=== PATIENT | female | born 1985 | race Caucasian/White ===

== ENCOUNTER 2017-08-24 19:31 | Outpatient (CLI) | payer MEDICAID ==
[2017-08-24 19:45] VITALS: BP 123/65
== END 2017-08-24 20:28 | disposition home or self-care (01) ==
LOC: WFO 19:31 → FBP 19:34 → WFO 20:28
PROVIDERS: ATTEND Obstetrics & Gynecology
DX: Z34.93 Encounter for supervision of normal pregnancy, unspecified, third trimester (principal)
CPT/HCPCS: 99212

== ENCOUNTER 2017-12-26 16:13 | Emergency (ER) | payer MEDICAID ==
[2017-12-26 16:21] VITALS: BP 119/89
[2017-12-26 16:33] LABS: BILIRUBIN,URINE NEGATIVE (NEGATIVE); GLUCOSE, URINE (UA) NEGATIVE (NEGATIVE); KETONES,URINE (UA) NEGATIVE (NEGATIVE); LEUKOCYTE ESTERASE, URINE MODERATE (NEGATIVE); NITRITE,URINE POSITIVE (NEGATIVE); OCCULT BLOOD,URINE TRACE-INTA (NEGATIVE); PROTEIN,URINE TRACE mg/dL (NEGATIVE); UROBILINOGEN,URINE 0.2 (NORMAL) E.U./dL (NORMAL)
[2017-12-26 16:36] LABS: CLARITY,URINE CLOUDY (CLEAR)
[2017-12-26 16:37] LABS: HCG UR QUAL NEGATIVE
--- NOTE | 2017-12-26 16:46 | ED Physician Documentation ---
PD HPI FEMALE - Stated complaint Stated Complaint: FEMALE - Chief complaint Chief Complaint: UTI - History obtained from History obtained from: Patient - History of Present Illness Timing - onset: How many weeks ago (1) Timing - duration: Weeks (1) Timing - details: Gradual onset, Still present Associated symptoms: Dysuria, Urinary frequency Similar symptoms before: Diagnosis (UTI) Recently seen: Not recently seen - Additional information Additional information: 32-year-old female previously well has had urinary urgency frequency and dysuria for the past week. She has been drinking some extra fluids and cranberry juice symptoms have not resolved. She denies any flank pain or nausea or vomiting she does have some lower back pain. Review of Systems Constitutional: denies: Fever Respiratory: denies: Cough GI: denies: Vomiting : reports: Dysuria, Frequency Skin: denies: Rash Musculoskeletal: reports: Back pain. denies: Neck pain, Extremity pain Neurologic: denies: Generalized weakness, Focal weakness, Numbness PD PAST MEDICAL HISTORY - Past Medical History Past Medical History: No - Past Surgical History Past Surgical History: No - Present Medications Home Medications: Ambulatory Orders Medication Instructions Recorded Confirmed Sulfamethoxazole/Trimethoprim 1 each PO BID #10 tablet 12/26/17 [Sulfamethoxazole-Tmp Ds Tablet] - Allergies Allergies/Adverse Reactions: Allergies Allergy/AdvReac Type Severity Reaction Status Date / Time No Known Drug Allergies Allergy Verified 12/26/17 16:21 - Social History Does the pt smoke?: Yes Smoking Status: Current every day smoker Does the pt drink ETOH?: No Does the pt have substance abuse?: No Substance Use and Type: Marijuana - Immunizations Immunizations are current?: Yes PD ED PE NORMAL - Vitals Vital signs reviewed: Yes (hypertensive ) - General General: Alert and oriented X 3, No acute distress, Well developed/nourished - HEENT HEENT: Atraumatic, PERRL, EOMI - Neck Neck: Supple, no meningeal sign - Respiratory Respiratory: No respiratory distress - Back Back: No CVA TTP, No spinal TTP - Derm Derm: Normal color, Warm and dry, No rash - Extremities Extremities: No deformity, No edema - Neuro Neuro: No motor deficit, No sensory deficit Eye Opening: Spontaneous Motor: Obeys Commands Verbal: Oriented GCS Score: 15 - Psych Psych: Normal mood, Normal affect Results - Vitals Vitals: Vital Signs - 24 hr 12/26/17 16:18 Temperature 37.0 C Heart Rate 96 Respiratory 16 Rate Blood Pressure 119/89 H O2 Saturation 97 Oxygen O2 Source Room air - Labs Labs: Laboratory Tests 12/26/17 12/26/17 16:27 16:27 Urine Color YELLOW Urine Clarity CLOUDY Urine pH 6.[address] 1.015 1.015 Urine Protein TRACE Urine Glucose (UA) NEGATIVE Urine Ketones NEGATIVE Urine Occult Blood TRACE-INTA Urine Nitrite POSITIVE H Urine Bilirubin NEGATIVE Urine Urobilinogen 0.2 (NORMAL) Ur Leukocyte Esterase MODERATE H Urine RBC 0-5 Urine WBC >25 H Urine WBC Clumps PRESENT Ur Squamous Epith Cells MOD Squamous H Urine Bacteria Many H Ur Microscopic Review INDICATED Urine Culture Comments NOT INDICATED Urine HCG, Qual NEGATIVE PD MEDICAL DECISION MAKING - ED course Complexity details: reviewed results, re-evaluated patient, considered differential, d/w patient ED course: 32-year-old female with acute urinary tract infection will be treated with Septra. - Sepsis Event Vital Signs: Vital Signs - 24 hr 12/26/17 16:18 Temperature 37.0 C Heart Rate 96 Respiratory 16 Rate Blood Pressure 119/89 H O2 Saturation 97 Oxygen O2 Source Room air Departure - Departure Disposition: 01 Home, Self Care Clinical Impression: Urinary tract infection Qualifiers: Urinary tract infection type: acute cystitis Hematuria presence: without hematuria Qualified Code(s): N30.00 - Acute cystitis without hematuria Condition: Stable Instructions: ED UTI Cystitis Female Follow-Up: [facility] [Provider Group] Prescriptions: Sulfamethoxazole/Trimethoprim [Sulfamethoxazole-Tmp Ds Tablet] 1 each PO BID # 10 tablet Discharge Date/Time: 12/26/17 16:51
[2017-12-26 16:52] LABS: BACTERIA,URINE Many /HPF (None Seen); RBC,URINE 0-5 /HPF (0-5); SQUAMOUS EPITHELIAL CELL,UR MOD Squamous (<= Few); WBC CLUMPS,URINE PRESENT
== END 2017-12-26 16:51 | disposition home or self-care (01) ==
LOC: ED 16:13
DX: N30.00 Acute cystitis without hematuria (principal); F17.200 Nicotine dependence, unspecified, uncomplicated
CPT/HCPCS: 81001; 81003; 81025; 87086; 99283

== ENCOUNTER 2018-01-02 16:20 | Outpatient (CLI) | payer MEDICAID ==
[2018-01-05 02:47] LABS: HSV 2 DNA NOT DETECTED; SOURCE VAGINAL
== END 2018-01-02 16:21 | disposition home or self-care (01) ==
LOC: LAB.R 16:20
PROVIDERS: ATTEND Obstetrics & Gynecology
DX: N76.0 Acute vaginitis (principal); N90.89 Other specified noninflammatory disorders of vulva and perineum
CPT/HCPCS: 87480; 87510; 87529; 87660

== ENCOUNTER 2018-03-07 14:06 | Outpatient (CLI) | payer MEDICAID ==
[2018-03-07 19:37] LABS: BASOPHILS % (AUTO) 0.7 %; EOSINOPHILS # (AUTO) 0.2 10^3/uL (0.0-0.7); EOSINOPHILS % (AUTO) 3.2 %; HGB - HEMOGLOBIN 12.1 g/dL (12.0-16.0); LYMPHOCYTES # (AUTO) 2.6 10^3/uL (1.5-3.5); LYMPHOCYTES % (AUTO) 42.6 %; MEAN CORPUSCULAR HEMOGLOBIN 30.2 pg (27.0-31.0); MEAN CORPUSCULAR HGB CONC 34.3 g/dL (32.0-36.0); MEAN CORPUSCULAR VOLUME 87.9 fL (81.0-99.0); MEAN PLATELET VOLUME 7.7 fL (7.9-10.8); MONOCYTES # (AUTO) 0.3 10^3/uL (0.0-1.0); MONOCYTES % (AUTO) 5.6 %; NEUTROPHILS # (AUTO) 2.9 10^3/uL (1.5-6.6); NEUTROPHILS % (AUTO) 47.9 %; PLT - PLATELET COUNT 311 10^3/uL (130-450); RED BLOOD COUNT 4.02 10^6/uL (4.20-5.40); RED CELL DISTRIBUTION WIDTH 13.6 % (12.0-15.0); WHITE BLOOD COUNT 6.1 x10^3/uL (4.8-10.8)
[2018-03-07 19:50] LABS: ALBUMIN/GLOBULIN RATIO 1.5 (1.0-2.2); BILIRUBIN,TOTAL 0.5 mg/dL (0.2-1.0); CALCIUM 8.6 mg/dL (8.5-10.3); CREATININE 0.8 mg/dL (0.4-1.0); TOTAL PROTEIN 6.7 g/dL (6.7-8.2)
[2018-03-07 19:59] LABS: THYROID STIMULATING HORMONE 0.2 uIU/mL (0.34-5.60)
[2018-03-07 20:10] LABS: FOLATE 9.87 ng/mL (5.90 - >24.8)
== END 2018-03-07 14:07 | disposition home or self-care (01) ==
LOC: LAB.N 14:06
PROVIDERS: ATTEND Nurse Practitioner
DX: R53.83 Other fatigue (principal); E55.9 Vitamin D deficiency, unspecified
CPT/HCPCS: 36415; 80050; 82306; 82607; 82746

== ENCOUNTER 2020-09-08 13:15 | Outpatient (CLI) | payer MEDICAID | END 2020-09-08 13:16 | disposition critical access hospital (66) | LOC: EMS 13:15 | PROVIDERS: ATTEND Emergency Medicine | DX: T65.892A Toxic effect of other specified substances, intentional self-harm, initial encounter (principal); T50.902A Poisoning by unspecified drugs, medicaments and biological substances, intentional self-harm, initial encounter | CPT/HCPCS: A0425; A0429 ==

== ENCOUNTER 2020-09-08 13:32 | Emergency (ER) | payer MEDICAID ==
[2020-09-08] MEDS ORDERED: LORazepam 2 MG/ML VIAL IVP STA (13:40)
[2020-09-08] MEDS ORDERED: SODIUM CHLORIDE 0.9% 1,000 ML IV STA (13:52)
[2020-09-08 14:09] LABS: BASOPHILS % (AUTO) 0.6 %; EOSINOPHILS # (AUTO) 0.5 10^3/uL (0.0-0.7); EOSINOPHILS % (AUTO) 6.8 %; HCT - HEMATOCRIT 38.6 % (37.0-47.0); HGB - HEMOGLOBIN 11.9 g/dL (12.0-16.0); LYMPHOCYTES # (AUTO) 1.8 10^3/uL (1.5-3.5); LYMPHOCYTES % (AUTO) 25.9 %; MEAN CORPUSCULAR HEMOGLOBIN 26.4 pg (27.0-31.0); MEAN CORPUSCULAR HGB CONC 30.8 g/dL (32.0-36.0); MEAN CORPUSCULAR VOLUME 85.8 fL (81.0-99.0); MEAN PLATELET VOLUME 9.2 fL (7.9-10.8); MONOCYTES # (AUTO) 0.6 10^3/uL (0.0-1.0); MONOCYTES % (AUTO) 8.8 %; NEUTROPHILS # (AUTO) 3.9 10^3/uL (1.5-6.6); NEUTROPHILS % (AUTO) 57.8 %; PLT - PLATELET COUNT 345 10^3/uL (130-450); RED CELL DISTRIBUTION WIDTH 15.8 % (12.0-15.0); WHITE BLOOD COUNT 6.8 x10^3/uL (4.8-10.8)
--- NOTE | 2020-09-08 14:17 | XRAY Report ---
PROCEDURE: Chest 1 View X-Ray INDICATIONS: caustic ingestion TECHNIQUE: One view of the chest was acquired. COMPARISON: None FINDINGS: Surgical changes and devices: None. Lungs and pleura: No pleural effusions or pneumothorax. Lungs are clear. Mediastinum: Mediastinal contours appear normal. Heart size is normal. Bones and chest wall: No suspicious bony lesions. Overlying soft tissues appear unremarkable. IMPRESSION: No acute process. Reviewed by: Fer Canseco MD on 09/08/2020 2:[address] [facility] Approved by: Fer Canseco MD on 09/08/2020 2:[address] [facility] Station ID: [id number]
[2020-09-08 14:28] LABS: ALBUMIN 4.6 g/dL (3.2-5.5); ALBUMIN/GLOBULIN RATIO 1.4 (1.0-2.2); ALKALINE PHOSPHATASE 59 IU/L (42-121); ALT ALANINE AMINOTRANSFERASE 31 IU/L (10-60); AST ASPARTATE AMINOTRANSFERASE 37 IU/L (10-42); BILIRUBIN,TOTAL 1.6 mg/dL (0.2-1.0); BUN - BLOOD UREA NITROGEN 22 mg/dL (6-20); CALCIUM 9.3 mg/dL (8.5-10.3); CARBON DIOXIDE - CO2 20 mmol/L (21-32); CHLORIDE 105 mmol/L (101-111); ETOH - ETHANOL < 5.0 mg/dL; GFR - MDRD 63 (>89); GLUCOSE 139 mg/dL (70-100); LIPASE 18 U/L (22-51); POTASSIUM 3.2 mmol/L (3.5-5.0); SODIUM 138 mmol/L (135-145); TOTAL PROTEIN 7.9 g/dL (6.7-8.2)
--- NOTE | 2020-09-08 14:28 | ED Physician Documentation ---
History of Present Illness - Stated complaint Stated Complaint: SI/OD - Chief complaint Chief Complaint: MHE - History obtained from History obtained from: Patient, EMS - Additonal information Additional information: Patient is brought to the emergency department by EMS for chief complaint of suicidal attempt. The patient according to EMS approximately 1 hour ago took 18 ibuprofen and a handful of Prozac. Medics report that patient's friends told them that the patient "washed it all down with bleach". Medics estimate the patient drank 1/2 to 1/4 cup of bleach. The patient has been stable in route. No complaints of chest pain. No vomiting. No difficulty breathing. Patient is quite agitated and is screaming "I do not want to be here! I just want to !" Patient is extremely uncooperative with history taking and very little history is available from her. She does admit to taking meth, though she states it was not today. She states she just took "what ever was in the bathroom". Medics report that patient is not at her own house, as she is from [place], but has been staying with friends. Patient denies any alcohol ingestion or ingestion of any other illicit drugs. She states, when asked how much bleach she drank, she took "enough". The patient states she "hurts all over". She states that she has been feeling extremely suicidal for the last 24 hours and refuses to e laborate, stating only "I got played the fool". Patient repeatedly screams and yells at staff, and attempts to rip her IV out, and ultimately, attempts to hit and kick staff. No other information available via patient at this time. Review of Systems Unable to obtain: Uncooperative PD PAST MEDICAL HISTORY - Past Surgical History Past Surgical History: No - Present Medications Home Medications: Ambulatory Orders Medication Instructions Recorded Confirmed Sulfamethoxazole/Trimethoprim 1 each PO BID #10 tablet 12/26/17 [Sulfamethoxazole-Tmp Ds Tablet] - Allergies Allergies/Adverse Reactions: Allergies Allergy/AdvReac Type Severity Reaction Status Date / Time No Known Drug Allergies Allergy Verified 12/26/17 16:21 - Social History Does the pt smoke?: Yes Smoking Status: Current every day smoker Does the pt drink ETOH?: No Does the pt have substance abuse?: No - Immunizations Immunizations are current?: Yes PD ED PE NORMAL - Vitals Vital signs reviewed: Yes - General General: Other (Patient is agitated, screaming and yelling, swinging arms and legs, and intermittently loudly sobbing, yelling at staff to "leave me alone and let me !") - HEENT HEENT: Atraumatic, PERRL, EOMI, Moist mucous membranes (Patient does not cooperate with examination of mucosa, but when patient's mouth is open, no obvious ulcerations or pseudomembranes can be seen. Patient is not excessively salivating. No blood around her mouth.) - Neck Neck: Supple, no meningeal sign - Cardiac Cardiac: RRR, No murmur - Respiratory Respiratory: No respiratory distress, Clear bilaterally - Abdomen Abdomen: Soft, Non tender, Non distended - Back Back: No CVA TTP - Derm Derm: Normal color, Warm and dry, No rash - Extremities Extremities: No deformity, No edema, No calf tenderness / cord - Neuro Neuro: Other (Alert, combative, severely emotionally distraught. Moving all 4 extremities. Speech is clear.) - Psych Psych: Other (Agitated, belligerent, tearful, angry.) Results - Vitals Vitals: Vital Signs - 24 hr 09/08/20 09/08/20 09/08/20 13:32 14:06 14:17 Temperature 37.0 C Heart Rate 122 H 105 H 96 Respiratory 22 21 17 Rate Blood Pressure 109/77 103/73 106/73 O2 Saturation 98 98 100 09/08/20 09/08/20 09/08/20 14:37 15:19 15:43 Temperature Heart Rate 95 94 90 Respiratory 14 16 24 Rate Blood Pressure 105/73 108/72 111/73 O2 Saturation 96 98 98 09/08/20 09/08/20 09/08/20 16:00 16:30 17:00 Temperature Heart Rate 94 90 100 Respiratory 16 16 15 Rate Blood Pressure 114/77 136/60 H O2 Saturation 98 98 94 09/08/20 09/08/20 17:30 18:00 Temperature Heart Rate 100 100 Respiratory 16 Rate Blood Pressure 136/55 H 136/71 H O2 Saturation 97 Oxygen O2 Source Room air - Labs Labs: Laboratory Tests 09/08/20 09/08/20 09/08/20 14:04 14:04 14:04 WBC 6.8 RBC 4.50 Hgb 11.9 L Hct 38.6 MCV 85.8 MCH 26.4 L MCHC 30.8 L RDW 15.8 H Plt Count 345 MPV 9.2 Neut # (Auto) 3.9 Lymph # (Auto) 1.8 Tate # (Auto) 0.6 Eos # (Auto) 0.5 Baso # (Auto) 0.0 Absolute Nucleated RBC 0.00 Nucleated RBC % 0.0 Sodium 138 Potassium 3.2 L Chloride 105 Carbon Dioxide 20 L Anion Gap 13.0 BUN 22 H Creatinine 1.0 Estimated GFR (MDRD) 63 L Glucose 139 H Calcium 9.3 Total Bilirubin 1.6 H AST 37 ALT 31 Alkaline Phosphatase 59 Total Protein 7.9 Albumin 4.6 Globulin 3.3 Albumin/Globulin Ratio 1.4 Lipase 18 L Serum HCG, Qual NEGATIVE Urine Opiates Screen Ur Oxycodone Screen Urine Methadone Screen Ur Propoxyphene Screen Ur Barbiturates Screen Ur Tricyclics Screen Ur Phencyclidine Scrn Ur Amphetamine Screen U Methamphetamines Scrn U Benzodiazepines Scrn Urine Cocaine Screen U Cannabinoids Screen Ethyl Alcohol < 5.0 09/08/20 16:40 WBC RBC Hgb Hct MCV MCH MCHC RDW Plt Count MPV Neut # (Auto) Lymph # (Auto) Tate # (Auto) Eos # (Auto) Baso # (Auto) Absolute Nucleated RBC Nucleated RBC % Sodium Potassium Chloride Carbon Dioxide Anion Gap BUN Creatinine Estimated GFR (MDRD) Glucose Calcium Total Bilirubin AST ALT Alkaline Phosphatase Total Protein Albumin Globulin Albumin/Globulin Ratio Lipase Serum HCG, Qual Urine Opiates Screen NEGATIVE Ur Oxycodone Screen NEGATIVE Urine Methadone Screen NEGATIVE Ur Propoxyphene Screen NEGATIVE Ur Barbiturates Screen NEGATIVE Ur Tricyclics Screen NEGATIVE Ur Phencyclidine Scrn NEGATIVE Ur Amphetamine Screen POSITIVE H U Methamphetamines Scrn POSITIVE H U Benzodiazepines Scrn POSITIVE H Urine Cocaine Screen NEGATIVE U Cannabinoids Screen POSITIVE H Ethyl Alcohol - Rads (name of study) chest x-ray Radiology: Final report received, EMP read indepedently, See rad report (neg) PD MEDICAL DECISION MAKING - ED course Complexity details: reviewed old records, reviewed results, re-evaluated patient, considered differential, d/w patient ED course: The patient was combative and a danger to staff, and ultimately, could not be calmed by talking to the patient and admonishing her. As such, she had to be placed in four-point restraints. She was also given an IV dose of Ativan at that time. The patient did calm down quite a bit and actually slept through most of her stay the rest of her stay in the emergency department throughout my shift. She was hemodynamically stable, as once she settled down, her heart rate came down to normal. The patient did not Have any symptoms of esophageal injury from bleach ingestion. Her chest x-ray was normal. Labs were unremarkable. Urine drug screen was positive for multiple things including methamphetamines. Patient's alcohol level was negative. I did not feel the patient was stable for discharge and as such, she was held involuntarily. At this point in time, she is awaiting telepsych evaluation and evaluation by [facility]. door worker has helped to facilitate this. Patient this time is medically clear and will be signed out to oncoming emergency physician pending mental health evaluation and final disposition.
[2020-09-08 14:44] LABS: HCG,QUALITATIVE BLOOD NEGATIVE
[2020-09-08 16:44] LABS: MUDS CUTOFF CONCENTRATIONS CUTOFF CONC BELOW:
[2020-09-08 16:56] LABS: AMPHETAMINE SCREEN,URINE POSITIVE (NEGATIVE); BARBITURATE SCREEN,UR NEGATIVE (NEGATIVE); BENZODIAZEPINES SCREEN, URINE POSITIVE (NEGATIVE); COCAINE SCREEN URINE NEGATIVE (NEGATIVE); METHADONE SCREEN, URINE NEGATIVE (NEGATIVE); METHAMPHETAMINES SCREEN, URINE POSITIVE (NEGATIVE); OPIATE SCREEN, URINE NEGATIVE (NEGATIVE); OXYCODONE SCREEN, URINE NEGATIVE (NEGATIVE); PROPOXYPHENE SCREEN, URINE NEGATIVE (NEGATIVE); THC CANNABINOID SCREEN, URINE POSITIVE (NEGATIVE); TRICYCLIC ANTIDEPRESSANT,URINE NEGATIVE (NEGATIVE)
[2020-09-08] MEDS ORDERED: HALOPERIDOL 5 MG/ML VIAL IVP ONE (18:28)
[2020-09-08 19:47] LABS: ACETAMINOPHEN < 10 ug/mL (10-30); SALICYLATE < 6.0 mg/dL
[2020-09-08 20:25] LABS: B. PARAPERTUSSIS- RESP PCR PAN NOT DETECTED; B. PERTUSSIS- RESP PCR PANEL NOT DETECTED; C. PNEUMONIAE- RESP PCR PANEL NOT DETECTED; CORONAVIRUS 229E-RESP PCR NOT DETECTED; CORONAVIRUS HKU1-RESP PCR NOT DETECTED; CORONAVIRUS NL63-RESP PCR NOT DETECTED; CORONAVIRUS OC43-RESP PCR NOT DETECTED; HUMAN METAPNEUMOVIRUS NOT DETECTED; INFLUENZA A- RESP PCR PANEL NOT DETECTED; INFLUENZA B - RESP PCR PANEL NOT DETECTED; M. PNEUMONIAE- RESP PCR PANEL NOT DETECTED; PARAINFLUENZA VIRUS 1 NOT DETECTED; PARAINFLUENZA VIRUS 2 NOT DETECTED; PARAINFLUENZA VIRUS 3 NOT DETECTED; PARAINFLUENZA VIRUS 4 NOT DETECTED; RHINOVIRUS/ENTEROVIRUS NOT DETECTED; RSV- RESP PCR PANEL NOT DETECTED; SARS-CoV-2 -RESP PCR PANEL NOT DETECTED
--- NOTE | 2020-09-09 10:42 | ED Physician Documentation ---
ED Addendum - Addendum Addendum: 09/09/20 10:41 By report from nursing staff and overnight physician, the patient has been calming pleasant overnight without any need for further restraint. However she is still reticent for conversation and did not want to talk to the DCR. Therefore difficult to assess for safety in I feel the patient is potentially at risk of self-harm. She did not really want to talk to me either. I agree therefore with involuntary detainment as the safest option.
[2020-09-09] MEDS ORDERED: LORazepam 1 MG TABLET PO STA ×2 (13:40→17:49)
[2020-09-09] MEDS ORDERED: NICOTINE 14 MG PATCH TOP STA (13:42)
[2020-09-09 18:08] VITALS: BP 102/60
== END 2020-09-09 18:05 ==
LOC: EDUNIT# → ED 13:32
DX: T43.222A Poisoning by selective serotonin reuptake inhibitors, intentional self-harm, initial encounter (principal); T39.312A Poisoning by propionic acid derivatives, intentional self-harm, initial encounter; T54.92XA Toxic effect of unspecified corrosive substance, intentional self-harm, initial encounter; F32.9 Major depressive disorder, single episode, unspecified; R45.1 Restlessness and agitation; F15.90 Other stimulant use, unspecified, uncomplicated; Z78.1 Physical restraint status; F17.200 Nicotine dependence, unspecified, uncomplicated; Z20.822 Contact with and (suspected) exposure to COVID-19
CPT/HCPCS: 0202U; 36415; 71045; 80053; 80306; 80307; 80320; 80329; 83690; 84703; 85025; 93005; 96374; 96375; 99285; A9270; J2060; J8499

== ENCOUNTER 2020-11-11 01:29 | Outpatient (CLI) | payer OTHER, MEDICAID | END 2020-11-11 01:30 | disposition home or self-care (01) | LOC: LAB 01:29 | PROVIDERS: ATTEND Pathology Blood Banking & Transfusion Medicine | DX: Z01.89 Encounter for other specified special examinations (principal) | CPT/HCPCS: 36415 ==